=== PATIENT | female | born 1970 | race Caucasian/White ===

== ENCOUNTER → 2020-04-27 10:59 | Outpatient (BNVA) | payer MEDICAID, SELFPAY | PROVIDERS: PCP Physician Assistant; Visit Provider Surgery | DX: Z11.59 Encounter for screening for other viral diseases (principal); K64.3 Fourth degree hemorrhoids | CPT/HCPCS: 87635 ==

== ENCOUNTER 2020-05-03 08:01 | Day surgery (SDC) | payer MEDICAID, SELFPAY ==
[2020-05-02 11:50] VITALS: BMI 21.4
--- NOTE | 2020-05-03 08:13 | W.PM.OPSUD ---
Surgery/Procedure H&P Update DATE OF PROCEDURE: May 03, 2020 DATE H&P PERFORMED: 04/24/20 H&P UPDATE INFORMATION: I have reviewed H&P completed within last 30 days and No changes to prior documentation PLANNED PROCEDURE: Operation Date: 05/03/20 09:45 Proposed Procedures p Hemorroidectomy 10377 K64.3(Not Applicable) - Stefano Das MD
[2020-05-03 08:22] VITALS: BP 105/67; PULSE 72; RESP 18; TEMP 37.3; O2SAT 100
[2020-05-03] MEDS: sodium chloride 0.9% 1,000 ML 30 ML IV (08:36)
--- NOTE | 2020-05-03 08:42 | P.ANESASSM_ITS ---
Pre-Anesthetic Assessment Pre-Anesthetic Assessment: Height/Weight: Height 1.6 m Weight 54.885 kg Temp Pulse Resp BP Pulse Ox 99.1 F 72 18 105/67 100 05/03/20 08:22 05/03/20 08:22 05/03/20 08:22 05/03/20 08:22 05/03/20 08:22 Preop Diagnosis: hemorrhoids Proposed Procedure: Operation Date: 05/03/20 09:45 Proposed Procedures p Hemorroidectomy 59770 K64.3(Not Applicable) - Stefano Das MD Familial anesthetic complications: none Was Beta Chris taken within 24 hours: N/A Last intake: Intake Last Liquid Date 05/03/20 Last Liquid Time 06:00 Last Solid Date 05/02/20 Last Solid Time 17:00 Social: Social History: No alcohol and No tobacco Exam: Pre-Anes Outpt Exam: alert, oriented x 3, clear to auscultation bi laterally and regular rate & rhythm Airway: Cervical ROM: WNL MP: 2 Dentition: Other (pulled teeth) Anesthetic Plan: ASA status: 1 Anesthesia: General Risk of > 500 ml blood loss (7ml/kg in children): No Meds/Allergies Current Medications: Current Medications Generic Name Dose Route Start Last Admin Trade Name Freq PRN Reason Stop Dose Admin Sodium Chloride 1,000 mls @ 30 ml s/hr 05/03/20 08:30 05/03/20 08:36 Sodium Chloride 0.9% IV 05/04/20 08:29 30 mls/hr .Q24H NERI Administration PFSH Anesthesia PFSH: Medical History (Updated 04/24/20 @ 09:49 by Stefano Das MD) Grade IV hemorrhoids Surgical History (Updated 04/24/20 @ 09:26 by Stefano Das MD) H/O lumpectomy left breast Family History Other CAD (coronary artery disease) Cancer Diabetes Denies family history of Anesthesia complication Bleeding disorder Social History (Updated 04/24/20 @ 09:06 by Anya Berg LPN) Smoking and tobacco status: never smoked Alcohol intake: never Lives independently: Yes Marital status: Single Current occupational status: unemployed History of recent travel: No Female Reproductive History: Date of last menstrual period: 04/09/20 Data Anesthesia Cardiac Studies: No Data to Display
[2020-05-03] MEDS: Fleet Enema 133 mL Enema PR (09:08)
[2020-05-03] MEDS: fentaNYL 50 mcg/mL INJ 2mL IVP (09:20)
[2020-05-03 09:26] LABS: OR HCG Qualitative Urine Negative (Negative)
[2020-05-03 10:19] VITALS: BP 125/80; PULSE 81; RESP 10; TEMP 36.5; O2SAT 100
[2020-05-03 10:25] VITALS: BP 121/73; PULSE 89; RESP 18; TEMP 36.6; O2SAT 100
--- NOTE | 2020-05-03 10:26 | PM.OP ---
Operative Report Date of procedure: May 03, 2020 Pre-op Diagnosis: Grade 4 hemorrhoids Post-op diagnosis: same Post-op Diagnosis: Grade 4 hemorrhoids at 3:00, 7:00 and 11 o'clock position Procedure Done: Hemorrhoidectomy x3 Specimens removed/disposition: Hemorrhoidal columns from 3:00, 7:00 and 11 o'clock position Surgeon: Stefano Das Anesthesia: General Condition: stable Disposition: PACU Procedure: The patient was taken to the operating room and was placed in the jackknife prone position under general anesthesia. The perianal area was prepped and draped in a sterile manner. Examination under anesthesia revealed grade 4 internal hemorrhoids in the right lateral and left lateral anterior and posterior location. 10 cc of 0.5% Marcaine mixed with 10 cc of saline mixed with 10 cc of Exparel was injected for a perianal block. The hemorrhoidal tissue on the left anterior lateral location was grasped with Allis clamps, and using LigaSure the hemorrhoidal tissue was excised staying superficial to the sphincter muscle up to a point superior to the dentate line. The hemorrhoidal tissue on the left posterior lateral location was grasped with Allis clamps, and using LigaSure the hemorrhoidal tissue was excised staying superficial to the sphincter muscle up to a point superior to the dentate line. The hemorrhoidal tissue on the right lateral location was grasped with Allis clamps, and using LigaSure the hemorrhoidal tissue was excised staying superficial to the sphincter muscle up to a point superior to the dentate line. There was no bleeding noted. The excised specimens were sent to pathology. A Vaseline gauze was placed in the anal canal and the patient was transferred to recovery room in stable condition.
[2020-05-03 10:39] VITALS: BP 117/49; PULSE 87; RESP 18; TEMP 36.7; O2SAT 100
[2020-05-03] MEDS: HYDROcodone-acetaminophen 5-325 mg Tablet 1 TAB PO (10:50)
[2020-05-03] MEDS: ondansetron 2 mg/ML SDV 2 mL 4 MG IVP ×2 (11:05→11:17)
[2020-05-03 11:21] VITALS: BP 119/72; PULSE 77; RESP 18; O2SAT 100
== END 2020-05-03 12:25 | disposition home or self-care (01) ==
PROVIDERS: PCP Physician Assistant; Visit Provider Surgery
PROC: (CPT 46250; principal; 2020-05-03 09:45)
DX: K64.3 Fourth degree hemorrhoids (principal)
CPT/HCPCS: 46250; 12345; 84703; 88304; 96374; C9290; J0330; J0690; J1100; J2250; J2405; J2704; J3010; J3490; J7030

== ENCOUNTER 2020-12-17 20:22 | Observation (INO) | payer MEDICAID, SELFPAY ==
[2020-12-17 20:28] VITALS: BP 129/57; PULSE 97; RESP 26; TEMP 37; O2SAT 100; BMI 22.3
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
[2020-12-17] MEDS: ondansetron 2 mg/ML SDV 2 mL 4 MG IVP ×2 (20:38→21:43)
[2020-12-17] MEDS: morphine 4 mg/mL SDV 1 mL IVP ×2 (20:39→21:43)
[2020-12-17] MEDS: sodium chloride 0.9% 500 ML 999 ML IV (20:41)
[2020-12-17 20:54] LABS: Basophils # 0.1 10^3/uL (0.0-0.1); Basophils % 0.6 %; Eosinophils # 0.2 10^3/uL (0.0-0.8); Eosinophils % 2.2 %; Hematocrit 37.1 % (37.0-47.0); Hemoglobin 11.9 g/dL (11.5-15.3); Mean Corpuscular HGB Conc 32.1 g/dL (30.0-36.0); Mean Corpuscular Hemoglobin 26.9 pg (28.0-34.0); Mean Corpuscular Volume 83.7 fL (81-99); Mean Platelet Volume 11.1 fL (7.4-10.4); Monocytes # 0.5 10^3/uL (0.2-0.9); Monocytes % 5.7 %; Neutrophils # 4.56 10^3/uL (1.8-7.7); Neutrophils % 54.8 %; Nucleated Red Blood Cells % 0 %; Platelet Count 211 10^3/cmm (130-400); Red Blood Count 4.43 10^6/uL (4.1-5.3); Red Cell Distribution Width 15.6 % (12.1-15.1); White Blood Count 8.3 10^3/uL (4.0-10.0)
[2020-12-17] MEDS: iohexol 300 mg/mL 100 mL Btl IV (20:57)
[2020-12-17 21:06] LABS: Alanine Aminotransferase 29 U/L (0-33); Albumin Level 3.7 g/dL (3.5-5.2); Alkaline Phosphatase 45 IU/L (35-105); Anion Gap 16.8 (5-19); Aspartate Amino Transferase 45 U/L (0-32); Blood Urea Nitrogen 10 mg/dL (6-20); Calcium 7.8 mg/dL (8.5-10.5); Carbon Dioxide 19 mmol/L (22-29); Chloride 110 mmol/L (98-107); Globulin 2.4 g/dL (1.3-4.6); Glomerular Filtration Rate 106.7 mL/min (90-130); Glucose 99 mg/dL (65-115); Osmolality Calculated 293 mOsm/kg (285-295); Potassium 3.8 mmol/L (3.5-5.1); Sodium 142 mmol/L (136-145); Total Bilirubin 0.2 mg/dL (0.15-1.2); Total Protein 6.1 g/dL (6.6-8.7)
[2020-12-17 21:11] LABS: HCG, Serum Qual Negative (Negative)
[2020-12-17 21:53] LABS: Add Urine Microscopic? NO; Charge for UA Resulting for Rev
[2020-12-17 21:55] LABS: Bilirubin Urine Neg (Negative); Blood Urine Neg (Negative); Glucose Urine UA Norm (Normal); Ketones Urine Negative (Negative); Leukocyte Esterase Urine Negative (Negative); Nitrate Urine Negative (Negative); Protein Urine Neg (Negative); Specific Gravity, Urine 1.005 (1.005-1.030); Urine Appearance Clear (CLEAR); Urine Color Straw (Yellow); Urobilinogen Urine Norm (Negative); pH Urine 7 (5-7)
[2020-12-17 23:52] VITALS: BP 102/57; PULSE 93; RESP 18; O2SAT 99
[2020-12-18] VITALS (14 sets, daily range): BP systolic 85–102; BP diastolic 44–67; PULSE 71–93; RESP 14–23; TEMP 36.8; O2SAT 96–100
[2020-12-18] MEDS: sodium chloride 0.9% 1,000 ML 100 ML IV (02:47)
[2020-12-18 03:39] LABS: Basophils # 0.1 10^3/uL (0.0-0.1); Basophils % 0.4 %; Hematocrit 35.3 % (37.0-47.0); Hemoglobin 11.4 g/dL (11.5-15.3); Lymphocytes # 1.4 10^3/uL (0.8-4.8); Lymphocytes % 9.3 %; Mean Corpuscular HGB Conc 32.3 g/dL (30.0-36.0); Mean Corpuscular Hemoglobin 26.9 pg (28.0-34.0); Mean Corpuscular Volume 83.3 fL (81-99); Mean Platelet Volume 11.2 fL (7.4-10.4); Monocytes # 0.6 10^3/uL (0.2-0.9); Monocytes % 4.1 %; Neutrophils # 12.72 10^3/uL (1.8-7.7); Neutrophils % 85.9 %; Nucleated Red Blood Cells % 0 %; Platelet Count 226 10^3/cmm (130-400); Red Blood Count 4.24 10^6/uL (4.1-5.3); Red Cell Distribution Width 15.7 % (12.1-15.1); White Blood Count 14.8 10^3/uL (4.0-10.0)
[2020-12-18 04:09] LABS: Alanine Aminotransferase 27 U/L (0-33); Albumin Level 3.8 g/dL (3.5-5.2); Alkaline Phosphatase 47 IU/L (35-105); Anion Gap 14.8 (5-19); Aspartate Amino Transferase 33 U/L (0-32); Blood Urea Nitrogen 7 mg/dL (6-20); Calcium 7.6 mg/dL (8.5-10.5); Carbon Dioxide 21 mmol/L (22-29); Chloride 108 mmol/L (98-107); Glomerular Filtration Rate 106.7 mL/min (90-130); Glucose 108 mg/dL (65-115); Osmolality Calculated 289 mOsm/kg (285-295); Potassium 3.8 mmol/L (3.5-5.1); Sodium 140 mmol/L (136-145); Total Bilirubin 0.3 mg/dL (0.15-1.2); Total Protein 5.8 g/dL (6.6-8.7)
--- NOTE | 2020-12-18 05:46 | PC.NURSE ---
Pain Pt denies need for pain medication at this time. Will continue to monitor and reassess.
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
[2020-12-18] MEDS: ibuprofen 600 mg Tablet PO (07:59)
--- NOTE | 2020-12-18 08:56 | PC.NURSE ---
This nurse was present during conversation with the attending physician. Physician stated that her chest x-ray was clear and that he wanted the patient to be up to chair and walking today for plan of discharge today. Patient assisted to bedside commode and then transferred to chair for breakfast. Patient complains of headache 4/10 on the pain scale. In report I was told that patient did not want prescribed morphine for pain. Ibuprofen was ordered by physician and given this morning for headache. Patient on phone with family at this time. Call light and patient items in reach. Patient states no further needs at this time.
--- NOTE | 2020-12-18 09:20 | PC.NURSE ---
Patient walked around unit back and forth twice. Patient states that it is easier to take deep breaths while standing and walking than when laying in bed. Patient educated on breathing techniques and taught about splinting to help reduce pain. Patient was assisted back to bed and complains of pain in her chest and shoulders 8/10 on a 1-10 pain scale. Lights dimmed, pillows placed and medication given for pain management.
[2020-12-18] MEDS: morphine 4 mg/mL SDV 1 mL IVP (09:35)
--- NOTE | 2020-12-18 10:09 | PC.NURSE ---
Pain Patient reassessed for pain. Patient is resting in bed with eyes closed at this time. Call light and patient items in reach. Bed low locked and side rails X2.
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
--- NOTE | 2020-12-18 12:56 | PC.CHAP ---
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 [] Patient/Family/Request visit [] Outpatient visit [] Follow-up visit [] Physician referral [] Code/Alert [] Routine visit [] Staff referral [] Actively dying [] Patient sleeping [] Family support [] [] Out of room [] Palliative care [] [] Receiving care in room [] Pre-surgical visit [] Trauma [] Long length of stay [] ICU visit [] Other: Relational/Emotional Strength [] Patient feels connected with others/family/visitors/staff [] Distress [] Loneliness/isolation [] Abandonment Spirituality of Patient [x] Person of Lyubov [x] Attends Cheondoism of their [place] [x] Believes in Prayer [] Reads Bible or Anabaptist materials [] There are Spiritual issues to be addressed 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 Interventions [x] Prayer [] Active listening [] Non-anxious presence [] Spiritual/emotional support [] Crisis/trauma care [] Spiritual counseling [] Bereavement support [] Provided bereavement packet [] Provided Bible/devotional materials [] Provided toy/stuffed animal, coloring book to patient or family member [] Provided Communion [] Anointing/[place] [] Salvation [] Completed spiritual assessment [] Other: Impact on Illness or Injury [] Angry [] Fearful [] Anxious [] Often cries [] Exhaustion [] Unable to work [] Unable to attend presybeterian [] Unable to walk/stand [] Unable to read [] Unable to drive [] Unable to eat/drink [] Unable to sleep [] Unable to be with family [] Patient intubated [] Other: Summary Time spent with patient
--- NOTE | 2020-12-18 13:59 | PC.NURSE ---
Patient Rounding Patient resting in bed with eyes closed. Patient stated earlier after her walk that if she was sleeping to please let her rest. Patient vital signs within normal limits based on monitor reading. Will continue to monitor.
--- NOTE | 2020-12-18 14:06 | PC.NURSE ---
Patient Rounding 12/18/20 14:00 Patient resting in bed with eyes closed. Vital signs within normal limits. Will continue to monitor.
== END 2020-12-18 15:13 | disposition home or self-care (01) ==
LOC: ER 23:39 → ICU 12-18 02:13
PROVIDERS: Admitting Provider Surgery; Emergency Provider Emergency Medicine; PCP Physician Assistant; Visit Provider Surgery
DX: S22.42XA Multiple fractures of ribs, left side, initial encounter for closed fracture (principal); S27.0XXA Traumatic pneumothorax, initial encounter; V89.2XXA Person injured in unspecified motor-vehicle accident, traffic, initial encounter; Z82.49 Family history of ischemic heart disease and other diseases of the circulatory system; Z83.3 Family history of diabetes mellitus
CPT/HCPCS: 36415; 70450; 71045; 71260; 72125; 72170; 73030; 74177; 80053; 81003; 84703; 85025; 96361; 96374; 96375; 96376; 99285; 99291; G0378; J2270; J2405; J7030; J7040; Q9967